=== PATIENT | female | born 1970 | race Caucasian/White ===

== ENCOUNTER 2017-12-16 12:42 | Emergency (ER) | payer OTHER ==
[~2017-12-16] VITALS: Ht 160 cm; Wt 87.1 kg
[2017-12-16] MEDS ORDERED: SODIUM CHLORIDE 0.9% 1000ML 1,000 ML IV SCH (13:30)
[2017-12-16] MEDS ORDERED: MECLIZINE HCL 12.5 MG TAB PO ONE (14:15)
[2017-12-16] MEDS ORDERED: ONDANSETRON HCL 4 MG ORAL DISINTEGRATING TAB PO ONE (14:15)
--- NOTE | 2017-12-16 14:17 | Diagnostic Imaging Report ---
Examination: CT BRAIN WITHOUT CONTRAST History:Fall. Head injury Comparison studies:None Technique: Axial images were obtained from the skull base to the vertex. Coronal and sagittal images reconstructed from the axial data. Intravenous contrast: None Findings: Scalp: Large right frontoparietal vertex scalp hematoma. Bones: No fractures, blastic or lytic lesions. Brain sulci: Appropriate for age. Ventricles: Normal in size and configuration. No hydrocephalus. Extra-axial space: No acute abnormality. Retrocerebellar and retrovermian arachnoid cyst. Parenchyma: No abnormal densities. No masses, hemorrhage, or acute or chronic cortical based vascular insults.. Sellar/suprasellar region: No abnormalities. Craniocervical junction: Patent foramen magnum. No Chiari one malformation. Incidental findings: None. Impression: 1. Large right frontoparietal vertex scalp hematoma. 2. No acute intracranial abnormalities. Signed by: Dr. Michaela Paiz M.D. on 12/16/2017 2:14 PM
[2017-12-16 16:25] VITALS: BP 137/91
== END 2017-12-16 16:48 | disposition home or self-care (01) ==
LOC: ER 12:42
DX: R55 Syncope and collapse (principal); R42 Dizziness and giddiness
CPT/HCPCS: 70450; 93005; 99284; J7030

== ENCOUNTER 2018-06-14 15:49 | Emergency (ER) | payer OTHER ==
[~2018-06-14] VITALS: Ht 160 cm; Wt 87.1 kg
--- OUTSIDE RECORDS SUMMARY | 2018-06-14 15:53 | XMS REPORT ---
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 Allergies, Adverse Reactions, Alerts This patient has no known allergies or adverse reactions. Medications This patient has no known medications. Results Test Description Test Time Test Comments Text Results Atomic Results Result Comments CT BRAIN WO [place] [address] Patient Name: MOLLY GUERRERO MR #: [id number] : 1970 Age/Sex: 47/F Req #: [id number] Adm Physician: Ordered by: LUIGI MEHTA MD Report #: [id number] Location: ER Room/Bed: Procedure: [id number] CT/CT BRAIN WO Exam Date: 12/16/17 Exam Time: 5 REPORT STATUS: Signed Examination: CT BRAIN WITHOUT CONTRAST History:Fall. Head injury Comparison studies:None Technique: Axial images were obtained from the skull base to the vertex. Coronal and sagittal images reconstructed from the axial data. Intravenous contrast: None Findings: Scalp: Large right frontoparietal vertex scalp hematoma. Bones: No fractures, blastic or lytic lesions. Brain sulci: Appropriate for age. Ventricles: Normal in size and configuration. No hydrocephalus. Extra-axial space: No acute abnormality. Retrocerebellar and retrovermian arachnoid cyst. Parenchyma: No abnormal densities. No masses, hemorrhage, or acute or chronic cortical based vascular insults.. Sellar/suprasellar region: No abnormalities. Craniocervical junction: Patent foramen magnum. No Chiari one malformation. Incidental findings: None. Impression: 1. Large right frontoparietal vertex scalp hematoma. 2. No acute intracranial abnormalities. Signed by: Dr. Michaela Paiz M.D. on 12/16/2017 2:14 PM Dictated By: MICHAELA LEIVA MD [id number] Transcribed By: ANANDA on 12/16/17 1414 COPY TO: LUIGI MEHTA MD
[2018-06-14] MEDS ORDERED: MORPHINE SULFATE INJ 4 MG/ML INJ IV STA (17:42)
[2018-06-14] MEDS ORDERED: ONDANSETRON HCL INJ 2 MG/ML VIAL IV STA (17:42)
[2018-06-14] MEDS ORDERED: SODIUM CHLORIDE 0.9% 1000ML 1,000 ML IV STA (17:42)
[2018-06-14 18:06] LABS: BASOPHILS # (AUTO) 0.1 (0.0-0.1); BASOPHILS % 0.5 % (0.0-1.0); EOSINOPHILS # (AUTO) 0.1 (0.0-0.4); EOSINOPHILS % 1.2 % (0.0-6.0); HEMATOCRIT 39.4 % (34.2-44.1); HEMOGLOBIN 12.6 g/dL (12.0-16.0); LYMPHOCYTES # (AUTO) 2.5 (1.0-3.2); LYMPHOCYTES % 21.9 % (18.0-39.1); MEAN CORPUSCULAR VOLUME 78.3 fL (81-99); MONOCYTES # (AUTO) 0.7 (0.2-0.8); MONOCYTES % 6.1 % (4.4-11.3); NEUTROPHILS # (AUTO) 7.9 (2.1-6.9); NEUTROPHILS % 69.9 % (38.7-80.0); PLATELET COUNT 307 x10e3/uL (140-360); RED BLOOD COUNT 5.03 x10e6/uL (3.6-5.1); RED CELL DISTRIBUTION WIDTH 14.3 % (11.7-14.4)
[2018-06-14 18:16] LABS: BILIRUBIN,URINE NEGATIVE (NEGATIVE); CLARITY,URINE CLEAR (CLEAR); COLOR,URINE YELLOW (YELLOW); KETONES,URINE NEGATIVE (NEGATIVE); LEUKOCYTE ESTERASE ,URINE NEGATIVE (NEGATIVE); NITRITE,URINE NEGATIVE (NEGATIVE); PROTEIN,URINE DIPSTICK NEGATIVE (NEGATIVE); URINE UROBILINOGEN 0.2 mg/dL (0.2 - 1)
[2018-06-14 18:17] LABS: INR 0.83; PROTHROMBIN TIME 12.2 seconds (11.9-14.5)
[2018-06-14 18:18] LABS: BACTERIA,URINE MANY /HPF; EPITHELIAL CELLS,URINE MODERATE /LPF; PARTIAL THROMBOPLASTIN TIME 28.3 seconds (23.8-35.5)
[2018-06-14 18:24] LABS: ALANINE AMINOTRANSFERASE 20 IU/L (0-55); ALBUMIN 4.2 g/dL (3.5-5.0); ALBUMIN/GLOBULIN RATIO 1.3 (0.8-2.0); ALKALINE PHOSPHATASE 133 IU/L (40-150); AMYLASE 47 U/L (25-125); ANION GAP 14.7 mmol/L (8-16); BLOOD UREA NITROGEN 7 mg/dL (7-26); BUN/CREATININE RATIO 9 (6-25); CALCIUM 9.4 mg/dL (8.4-10.2); CARBON DIOXIDE 25 mmol/L (22-29); CHLORIDE 100 mmol/L (98-107); CREATININE, SERUM 0.74 mg/dL (0.57-1.11); EST GLOMERULAR FILTRATION RATE > 60 ML/MIN (60-); GLUCOSE 102 mg/dL (74-118); LIPASE 23 U/L (8-78); MAGNESIUM 2.3 MG/DL (1.3-2.1); POTASSIUM 3.7 mmol/L (3.5-5.1); SODIUM 136 mmol/L (136-145)
--- NOTE | 2018-06-14 19:15 | Diagnostic Imaging Report ---
EXAM: CT Abdomen and Pelvis WITH contrast INDICATION: Lower abdominal pain COMPARISON: None. TECHNIQUE: Abdomen and pelvis were scanned utilizing a multidetector helical scanner from the lung base to the pubic symphysis after administration of IV contrast. Coronal and sagittal reformations were obtained. Routine protocol was performed. Scan was performed when during portal venous phase. IV CONTRAST: 100 mL of Isovue-300 ORAL CONTRAST: Water RADIATION DOSE: Total DLP: 393.47 mGy*cm Estimated effective dose: (DLP x 0.015 x size factor) mSv All CT scans are performed using radiation dose reduction techniques. Technical factors are evaluated and adjusted to ensure appropriate moderation of exposure. Automated dose management technology is applied to adjust the radiation dose to minimize exposure while achieving a diagnostic-quality image. COMPLICATIONS: None FINDINGS: LINES and TUBES: None. LOWER THORAX: Unremarkable HEPATOBILIARY: No focal hepatic lesions. No biliary ductal dilation. GALLBLADDER: Not seen SPLEEN: No splenomegaly. PANCREAS: No focal masses or ductal dilatation. ADRENALS: No adrenal nodules KIDNEYS/URETERS: Kidneys enhance symmetrically. No hydronephrosis. No cystic or solid mass lesions. No stones. GI TRACT: No abnormal distention, wall thickening, or evidence of bowel obstruction. Appendix is normal. Moderate amount of retained feces in the colon could be due to constipation. PELVIC ORGANS/BLADDER: Unremarkable. LYMPH NODES: No lymphadenopathy. VESSELS: Unremarkable. PERITONEUM / RETROPERITONEUM: No free air or fluid. BONES: Unremarkable. SOFT TISSUES: Unremarkable. IMPRESSION: 1. Moderate amount of retained feces in the colon could be due to constipation. Signed by: Dr. Yang Bonilla M.D. on 06/14/2018 7:11 PM
[2018-06-14] MEDS ORDERED: SODIUM CHLORIDE 0.9% 50ML 50 ML ONE (19:17)
[2018-06-14] MEDS ORDERED: IOPAMIDOL 370 MG/ML 200 ML INFUS..BTL INJ ONE (19:17)
== END 2018-06-14 21:15 | disposition home or self-care (01) ==
LOC: ER 15:49
DX: R10.32 Left lower quadrant pain (principal); R10.31 Right lower quadrant pain; R11.0 Nausea; K59.00 Constipation, unspecified; R01.1 Cardiac murmur, unspecified; G40.909 Epilepsy, unspecified, not intractable, without status epilepticus
CPT/HCPCS: 36415; 74177; 80053; 81001; 82150; 83690; 83735; 84702; 85025; 85610; 85730; 99284; Q9967

== ENCOUNTER → 2019-09-04 | Outpatient (CLI) | payer OTHER ==
--- NOTE | 2019-09-04 14:40 | Diagnostic Imaging Report ---
Thoracic spine, 2 views. History: Back pain. Findings: The alignment of the thoracic spine is normal. There is no evidence of fracture or subluxation. The intervertebral disc spaces are normal limits. No evidence of lytic or sclerotic lesion. The paraspinal soft tissues are unremarkable IMPRESSION: Normal thoracic spine. Signed by: Matt Handy on 09/04/2019 2:37 PM
--- NOTE | 2019-09-04 14:42 | Diagnostic Imaging Report ---
Cervical spine, 5 views. History: Neck pain. Discussion: The cervical spine is visualized on the lateral view from C1 through the top of T1. There is normal lordotic curvature. There is no evidence of fracture, subluxation, or posterior splaying. There is severe disc space narrowing with osteophytosis, uncovertebral hypertrophy, and bilateral neuroforaminal narrowing at C5-C6. Less severe degenerative changes are also present at adjacent levels. The prevertebral soft tissues are within normal limits. IMPRESSION: Degenerative changes in the lower cervical spine. Signed by: Matt Handy on 09/04/2019 2:40 PM
--- NOTE | 2019-09-04 14:44 | Diagnostic Imaging Report ---
Lumbar spine series, 5 views. History: Back pain. Comparison: None available. Discussion: The paraspinal soft tissues are unremarkable. The alignment of the lumbar spine is normal. There is no evidence of fracture, spondylolisthesis, or spondylolysis. There is moderate disc space narrowing at L3-L4 with osteophytosis and posterior facet sclerosis. Small osteophytes are present at additional levels. IMPRESSION: Degenerative changes in the lumbar spine. Signed by: Matt Handy on 09/04/2019 2:41 PM
== END ==
LOC: MAMMO 12:48
PROVIDERS: ATTEND Internal Medicine
DX: M54.2 Cervicalgia (principal); M54.6 Pain in thoracic spine; M54.5 Low back pain
CPT/HCPCS: 72050; 72070; 72110; 77067; 81025

== ENCOUNTER → 2024-09-17 | Day surgery (SDC) | payer OTHER ==
[~2024-09-17] MED LIST: ACETAMINOPHEN 1000 MG/100 ML 0 ML IV ONE; BUSPIRONE HCL15 MG PO; DEPAKOTE ER250 MG PO; FENTANYL CITRATE/PF 100MCG/2 ML INJ ONE; LIDOCAINE HCL 2% LOCAL INJ 5 ML SDV VIAL INJ ONE; PROPOFOL IV EMULSION 10 MG/ML 20 ML VIAL ONE; SERTRALINE HCL100 MG PO; SEVOFLURANE INHAL SOLN 250 ML PEN BTL ONE; TRAZODONE HCL100 MG PO
[2024-09-17] MEDS: LACTATED RINGER'S 1,000 ML ONE (11:02)
[2024-09-17 14:48] VITALS: TEMP 98.3
[2024-09-17 15:15] VITALS: BP 138/74; PULSE 66; RESP 18; O2SAT 98
== END | disposition home or self-care (01) ==
LOC: OR 10:47
PROVIDERS: ATTEND Internal Medicine Gastroenterology
DX: Z12.11 Encounter for screening for malignant neoplasm of colon (principal); R19.4 Change in bowel habit; R19.7 Diarrhea, unspecified; K21.9 Gastro-esophageal reflux disease without esophagitis; G47.33 Obstructive sleep apnea (adult) (pediatric); G40.909 Epilepsy, unspecified, not intractable, without status epilepticus; R03.0 Elevated blood-pressure reading, without diagnosis of hypertension; R51.9 Headache, unspecified; F41.9 Anxiety disorder, unspecified; F32.A Depression, unspecified; Z01.810 Encounter for preprocedural cardiovascular examination; Z79.899 Other long term (current) drug therapy; Z68.35 Body mass index [BMI] 35.0-35.9, adult
CPT/HCPCS: 45380; 93005; J2003; J2704; J7121; 45378